=== PATIENT | female | born 1990 | race Caucasian/White ===

== ENCOUNTER 2016-07-30 22:21 | Emergency (ER) | payer OTHER, BC ==
[~2016-07-30] VITALS: Ht 172.7 cm; Wt 113.5 kg
[~2016-07-30 22:21] MED LIST: ALBUAER2 INH; ATR25 PO; ETONMIS VAGRING; MTR800 PO
[2016-07-30 22:23] VITALS: TEMP 36.9; Ht 172.7 cm; Wt 113.5 kg
[2016-07-30] MEDS ORDERED: ACETAMINOPHEN 500 MG TAB PO STA (22:39)
--- NOTE | 2016-07-30 22:56 | DIAGNOSTIC IMAGING REPORT ---
LEFT ANKLE MIN 3 VIEWS ROUTINE CLINICAL HISTORY: ankle pain TRAUMA COMPARISON: None. DISCUSSION: No fractures or dislocations are visualized. There is a plantar calcaneal spur. There is lateral soft tissue swelling. IMPRESSION: Soft tissue swelling. No fractures identified. Electronically signed by: Hector Astorga M.D. 07/30/2016 10:54 PM Dictated Date/Time: 07/30/2016 10:54 PM
[2016-07-30] MEDS ORDERED: HYDR25CA PO (22:58)
[2016-07-30] MEDS ORDERED: CLX20 PO (22:58)
[2016-07-30 23:18] VITALS: BP 136/91; PULSE 90; O2SAT 99
--- NOTE | 2016-07-31 04:19 | EMERGENCY ROOM VISIT NOTE ---
ED Visit Note First contact with patient: 22:30 CHIEF COMPLAINT: Ankle pain HISTORY OF PRESENT ILLNESS: This 25-year-old patient presents to the emergency department after sustaining an injury to the left ankle and foot with a twisting, inversion motion stepping out the truck wrong. The patient complains of pain along the outside of the ankle. The patient denies pain of the foot. The patient rates the pain as throbbing and 5/10. The patient is barely able to bear weight on the foot. Constant pain, worse with movement, weight bearing , and the dependent position. No knee pain, the patient is able to move their toes. No numbness or weakness of the foot, no laceration. The patient has not had a previous fracture to this ankle. The patient has taken Motrin for the pain. The patient denies any other injury. REVIEW OF SYSTEMS: A 6 system review of systems was completed with positives and pertinent negatives listed in the HPI. ALLERGIES: Sulfa, reviewed MEDICATIONS: Reviewed PMH: Asthma SOCIAL HISTORY: No drug use PHYSICAL EXAM: Vital Signs: Reviewed Nurse's notes, vital signs stable. GENERAL : Pleasant female, no acute distress, but appears in pain, well-developed, well- nourished. MENTAL STATUS: Alert, oriented to person place and time, and cooperative. MUSCULOSKELETAL: The left ankle is swollen and tender over the lateral malleolus, but the skin is intact and there is no ligamentous instability. There is no fifth metatarsal tenderness. There is no tenderness over the rest of the foot. There is no calf or tibia/fibular tenderness. There is no visual deformity. The foot and toes are warm and well-perfused. Dorsalis pedis pulse 2+. Sensation to pain and light touch is intact. Capillary refill less than 2 seconds. EMERGENCY DEPARTMENT COURSE: I examined the patient. Ice pack was applied and patient was given Tylenol. X-rays of the left ankle were reviewed by myself and shows no fracture per my interpretation. AirGel splint was applied to the ankle under my direction and the position was satisfactory. Neurovascular status was rechecked and intact. The patient was instructed on the use of crutches. The patient was discharged home in good condition. Patient was advised to follow-up orthopedics in a week if symptoms persist or here in the ER sooner for severe pain, numbness, tingling, worsening signs or symptoms or as needed. Differential diagnoses include sprain, strain, fracture, dislocation and other etiologies were considered. DIAGNOSIS: Left ankle sprain DISCHARGE INSTRUCTIONS: As below Problem List Medical Problems: (1) Asthma, Unspecified Status: Chronic Current/Historical Medications Scheduled Albuterol (Ventolin), 2 PUFFS INH QID PRN Citalopram (Citalopram Hydrobromide), 30 MG PO QAM Etonogestrel/Ethinyl Estradiol (Nuvaring), 1 EA VAGRING MONTHLY Ibuprofen (Ibuprofen), 800 MG PO UD Scheduled PRN Hydroxyzine Pamoate (Vistaril), 25 MG PO TID PRN for Anxiety/Agitation Allergies Coded Allergies: Methylprednisolone (Verified Allergy, Unknown, rash, 07/30/16) Sulfa Antibiotics (Verified Adverse Reaction, Unknown, leg cramps, 07/30/16 ) Vital Signs Date Time Temp Pulse Resp B/P Pulse Ox O2 Delivery O2 Flow Rate FiO2 07/30/16 23:18 90 18 136/91 99 Room Air 07/30/16 22:23 36.9 91 20 163/102 96 Room Air Medications Administered Medications (Trade) Dose Ordered Sig/Traci Route Start Time Stop Time Status Last Admin Dose Admin Acetaminophen (Tylenol Tab) 1,000 mg NOW STAT PO 07/30/16 22:39 07/30/16 22:40 DC 07/30/16 23:23 1,000 MG Departure Information Impression Primary Impression: Left ankle sprain Dispostion Home / Self-Care Condition GOOD Referrals Ayo Mckee M.D. Forms HOME CARE DOCUMENTATION FORM, Work Instructions, Return To Work: 1 day IMPORTANT VISIT INFORMATION Patient Instructions Sprain Ankle, My [facility] Additional Instructions Ibuprofen(Motrin, Advil) may be used for fever or pain. Use 600mg every six hours as needed. Take with food. Avoid using more than 2400mg in a 24 hour period. Do not use 2400mg per day for more than three consecutive days without physician direction. Prolonged inappropriate use can lead to stomach upset or ulcers. This medication can be taken if you need to drive, work, or perform activities which may be dangerous when taking narcotic pain medication. (AND/OR) Acetaminophen(Tylenol) may be used for fever or pain. Use 1000mg every six hours as needed. Avoid using more than 3000mg in a 24 hour period. This medication can be taken if you need to drive, work, or perform activities which may be dangerous when taking narcotic pain medication. Ice compresses for 20 minutes at a time four times daily for 2-3 days. Use the crutches as instructed. Rest and elevate your injury. Wear ankle gel splint until pain subsides. Do not have it so tight that you cannot feel your foot. Continue current medications. Return to the ER immediately for any numbness, tingling, severe pain, extreme swelling in the extremity or as needed. Call Orthopedics in 3-5 days in symptoms persist to arrange follow up for your injury. Work Instructions Return To Work: 1 day
== END 2016-07-30 23:40 | disposition home or self-care (01) ==
LOC: C.EDB 22:21
DX: S93.402A Sprain of unspecified ligament of left ankle, initial encounter (principal); X58.XXXA Exposure to other specified factors, initial encounter; J45.909 Unspecified asthma, uncomplicated; Z79.899 Other long term (current) drug therapy; Z88.2 Allergy status to sulfonamides; Z88.8 Allergy status to other drugs, medicaments and biological substances

== ENCOUNTER → 2016-09-09 | Outpatient (CLI) | payer OTHER, BC ==
[~2016-09-09] MED LIST changes: -ATR25 PO; +CLX20 PO; +HYDR-5688 PO; +HYDR25CA PO; +LORA-741 PO; +VNTHFA/IN INH
== END | disposition home or self-care (01) ==
LOC: C.LABSPEC 17:36
PROVIDERS: ATTEND Internal Medicine
DX: J02.9 Acute pharyngitis, unspecified (principal)

== ENCOUNTER 2017-01-31 07:02 | Emergency (ER) | payer OTHER, BC ==
[~2017-01-31] VITALS: Ht 170.2 cm; Wt 118.0 kg
[~2017-01-31 07:02] MED LIST changes: -HYDR-5688 PO; -LORA-741 PO; -VNTHFA/IN INH
[2017-01-31 07:04] VITALS: TEMP 36.7; Ht 170.2 cm; Wt 118.0 kg
--- NOTE | 2017-01-31 07:38 | DIAGNOSTIC IMAGING REPORT ---
RIGHT HIP UNILATERAL 2 VIEWS CLINICAL HISTORY: Right hip pain, no trauma Right pain COMPARISON: None. DISCUSSION: The bones and joint spaces appear intact. There is no evidence of fracture, dislocation or bony disease. There is no evidence for soft tissue swelling. IMPRESSION: Negative study. The above report was generated using voice recognition software. It may contain grammatical, syntax or spelling errors. Electronically signed by: George Richardson M.D. 01/31/2017 7:36 AM Dictated Date/Time: 01/31/2017 7:36 AM
[2017-01-31] MEDS ORDERED: VNTHFA/IN INH (08:04)
[2017-01-31] MEDS ORDERED: LORA-741 PO (08:04)
[2017-01-31] MEDS ORDERED: HYDROCODONE/ACETAMOPHEN 5/325MG TAB PO STA (08:39)
[2017-01-31] MEDS ORDERED: NAPROXEN 250 MG TAB PO STA (08:39)
[2017-01-31] MEDS ORDERED: HYDR-5688 PO (08:57)
[2017-01-31 09:10] VITALS: BP 151/99; PULSE 82; O2SAT 100
--- NOTE | 2017-01-31 12:49 | EMERGENCY ROOM VISIT NOTE ---
History Report prepared by Vashti: Rosalina Hyatt Under the Supervision of: Dr. Remy Ramírez M.D. First contact with patient: 07:07 Chief Complaint: HIP PAIN Stated Complaint: HIP PAIN History of Present Illness The patient is a 26 year old female who presents to the Emergency Room with complaints of worsening posterior right hip pain that started 4 days ago. The pain occasionally wraps around into her right anterior hip but otherwise does not radiate. She rates her discomfort as a 6-7/10 in severity. The patient describes the pain as a sharp and achy pain. The pain is worse when standing and occasionally when lying down or sitting upright. The patient states that she has been experiencing intermittent right hip pain for about 10 years now. She experiences the pain once every 1-1.5 months and nothing specific seems to cause the pain to occur. The patient states that her pain seemed to start 10 years ago after she fell in her driveway. She states that she landed on her tailbone when she fell. She has been on Flexeril for the pain for years and she is typically able to relieve her hip pain with the Flexeril and ibuprofen. However, neither offered her any relief of her current pain. The patient also states that her pain typically subsides after 1 day. Pt denies LOC, headache, fevers, chills, diaphoresis, visual changes, sore throat, cold symptoms, neck pain, chest pain, breathing difficulties, nausea, vomiting, abdominal pain, back pain, melena, hematochezia, urinary symptoms, numbness, weakness, lymphadenopathy, rash, or other complaints. The patient states that she lifts, twists, and bends when she is at work but she denies any recent abnormal strenuous activity. She also denies doing any recent strenuous activity that caused her pain to worsen immediately. The patient has been evaluated at a walk- in clinic for her pain, but they did not do any imaging of her hip. The patient adds that she has a suspected bug bite on her right forearm that she was recently on amoxicillin for. The amoxicillin seemed to improve her bite. Source of History: patient Onset: 4 days ago Position: other (right posterior hip) Symptom Intensity: 6-7/10 Quality: ache, sharp Timing: worsening Modifying Factors (Worsening): other (standing, lying, sitting upright) Modifying Factors (Relieving): other (None) Note: occasional right anterior hip pain Review of Systems See HPI for pertinent positives and negatives. A total of ten systems were reviewed and were otherwise negative. Past Medical & Surgical Medical Problems: (1) Asthma, Unspecified Surgical Problems: (1) S/P wrist surgery Family History Cancer Diabetes mellitus FH: heart disease FHx: lung disease Hypertension Kidney disease Social History Smoking Status: Never Smoker Alcohol Use: occasionally Marital Status: single Housing Status: lives with family Occupation Status: employed Current/Historical Medications Scheduled Citalopram (Citalopram Hydrobromide), 30 MG PO QAM Etonogestrel/Ethinyl Estradiol (Nuvaring), 1 EA VAGRING MONTHLY Ibuprofen (Ibuprofen), 800 MG PO UD Scheduled PRN Albuterol Hfa (Ventolin Hfa), 2-4 PUFFS INH Q6H PRN for Shortness of Breath Hydrocodone/Acetaminophen 5MG/325MG ([place] 5MG/325MG), 1-2 TABS PO Q6H PRN for Pain Hydroxyzine Pamoate (Vistaril), 25 MG PO TID PRN for Anxiety/Agitation Lorazepam (Ativan), 0.5 MG PO TID PRN for Anxiety Allergies Coded Allergies: Methylprednisolone (Verified Allergy, Unknown, rash, 01/31/17) Sulfa Antibiotics (Verified Adverse Reaction, Unknown, leg cramps, 01/31/17 ) Physical Exam Vital Signs Date Time Temp Pulse Resp B/P (MAP) Pulse Ox O2 Delivery O2 Flow Rate FiO2 01/31/17 09:10 82 18 151/99 100 01/31/17 07:04 36.7 107 20 157/97 99 Physical Exam GENERAL: Awake, alert, well-appearing, in no distress HENT: Normocephalic, atraumatic. Oropharynx unremarkable. EYES: Normal conjunctiva. Sclera non-icteric. NECK: Supple. No nuchal rigidity. FROM. No JVD. RESPIRATORY: Clear to auscultation. CARDIAC: Regular rate, normal rhythm. Extremities warm and well perfused. Pulses equal. ABDOMEN: Soft, non-distended. No tenderness to palpation. No rebound or guarding. No masses. RECTAL: Deferred. MUSCULOSKELETAL: Chest examination reveals no tenderness. The back is symmetrical on inspection without obvious abnormality. There is no CVA tenderness to palpation. No joint edema. LOWER EXTREMITIES: Tenderness over right posterior gluteus. Range of motion well preserved. No tenderness over greater trochanter. Remainder of right lower leg is unremarkable. Calves are equal size bilaterally and non-tender. No edema. No discoloration. The patient can bear weight without difficulty. NEURO: Normal sensorium. No sensory or motor deficits noted. SKIN: No rash or jaundice noted. Medical Decision & Procedures ER Provider Diagnostic Interpretation: Radiology results as stated below per my review and radiologist interpretation: RIGHT HIP UNILATERAL 2 VIEWS DISCUSSION: The bones and joint spaces appear intact. There is no evidence of fracture, dislocation or bony disease. There is no evidence for soft tissue swelling. IMPRESSION: Negative study. The above report was generated using voice recognition software. It may contain grammatical, syntax or spelling errors. Electronically signed by: George Richardson M.D. 01/31/2017 7:36 AM Dictated Date/Time: 01/31/2017 7:36 AM Medications Administered Medications (Trade) Dose Ordered Sig/Traci Route Start Time Stop Time Status Last Admin Dose Admin Naproxen (Naprosyn Tab) 500 mg NOW STAT PO 01/31/17 08:39 01/31/17 08:41 DC 01/31/17 08:47 500 MG Acetaminophen/ Hydrocodone Bitart ([place] 5/325 Tab) 1 tab NOW STAT PO 01/31/17 08:39 01/31/17 08:41 DC 01/31/17 08:48 1 TAB ED Course 0718: The patient was evaluated in room B10. A complete history and physical exam was performed. 0827: I reevaluated the patient. She is doing well. Discussed results and discharge instructions: she verbalized understanding and agreement. The patient is ready for discharge. 0839: Ordered Hydrocodone Bitart/Acetaminophen 1 tab PO, Naproxen 500 mg PO Medical Decision Medication Reconciliation: I attest that I have personally reviewed the patient' s current medication list Blood pressure screening: Patient was found to have an elevated blood pressure and was referred to their primary doctor for recheck and further treatment. Prior records reviewed and summarized above. Triage Nursing notes reviewed and agree them. The patient's history was concerning for posterior hip pain. Differential diagnosis: Etiologies such as arthritis, bursitis, piriformis syndrome, sacroiliitis, fracture, dislocation, soft tissue injury, infection, as well as others were entertained. Physical examination: As above. No signs of infection. Neurologic issues noted. ER treatment provided: Oral Naprosyn 1 [place] given because the patient drove herself to the emergency department. Diagnostics interpreted by me: Imaging studies: Xrays as above. The exact etiology is not obvious at this time. The patient may have a muscular issue such as a piriformis problem. She had great range of motion of the hip. She had no signs of bursitis. There is been an ongoing issue with this. There is no indication for blood work at this time. I discussed referral to orthopedics. The patient was in agreement. She was given information for [facility] She has seen them in the past. By the evaluation outlined above emergent etiologies such as fracture, dislocation, neurovascular compromise, compartment syndrome, infections, as well as others were deemed relatively unlikely. The patient and mother were informed about the findings as listed above. All questions were answered and they were pleased with the treatment. Return instructions were outlined and the patient was discharged in stable condition. Prescription management: [place] Naprosyn Referral: The patient was referred to [facility] for follow-up care. [place] Drug Monitoring Program Search Results: patient reviewed within database, no issues identified Impression Primary Impression: Right hip pain Scribe Attestation The scribe's documentation has been prepared under my direction and personally reviewed by me in its entirety. I confirm that the note above accurately reflects all work, treatment, procedures, and medical decision making performed by me. Departure Information Dispostion Home / Self-Care Prescriptions Hydrocodone/Acetaminophen 5MG/325MG ([place] 5MG/325MG) Tab 1-2 TABS PO Q6H Y for Pain, #10 TAB Prov: Remy Ramírez MD 01/31/17 Referrals Edwardo Domínguez M.D. (PCP) Forms HOME CARE DOCUMENTATION FORM, IMPORTANT VISIT INFORMATION, WORK / SCHOOL INSTRUCTIONS Patient Instructions My [facility] Additional Instructions ORTHOPEDIC INSTRUCTIONS: Hydrocodone/acetaminophen 5/325mg: Take 1-2 pills every 6 hours as needed for pain. Avoid additional Acetaminophen/Tylenol, alcohol, operating machinery or dangerous equipment, working on ladders or roofs, DRIVING, or situations where being under the influence may be dangerous. It is recommended to use a stool softener such as Colace, 100mg twice daily while taking this medication to avoid constipation. Do not take this in conjunction with your Ativan. Naprosyn 500 mg may be used for pain. Use 1 pill twice a day as needed. Take with food. Prolonged inappropriate use can lead to stomach upset or ulcers. Ice compresses for 20 minutes at a time four times daily for 2-3 days. Rest your injury. Return to the ER immediately for any numbness, tingling, severe pain, extreme swelling in the extremity or as needed. Call [facility], [phone], to arrange follow up for your pain. Your blood pressure was noted to be mildly elevated please follow-up with your primary care physician in 2 to 3 days for a recheck of your current condition.
== END 2017-01-31 09:12 | disposition home or self-care (01) ==
LOC: C.EDB 07:03
DX: M25.551 Pain in right hip (principal); J45.909 Unspecified asthma, uncomplicated; Z80.9 Family history of malignant neoplasm, unspecified; Z83.3 Family history of diabetes mellitus; Z82.49 Family history of ischemic heart disease and other diseases of the circulatory system; Z84.1 Family history of disorders of kidney and ureter; Z79.899 Other long term (current) drug therapy

== ENCOUNTER → 2017-04-23 | Outpatient (CLI) | payer OTHER, BC ==
[~2017-04-23] MED LIST changes: -ALBUAER2 INH; +HYDR-5688 PO; +LORA-741 PO; +VNTHFA/IN INH
== END | disposition home or self-care (01) ==
LOC: C.LABSPEC 12:21
PROVIDERS: ATTEND Physician Assistant Medical
DX: R19.7 Diarrhea, unspecified (principal)

== ENCOUNTER → 2017-10-29 | Outpatient (CLI) | payer OTHER ==
[~2017-10-29] MED LIST changes: -HYDR-5688 PO
[2017-10-29 12:14] LABS: HEMATOCRIT 40.7 % (37-47); HEMOGLOBIN 13.7 g/dL (12.0-16.0); MEAN CELL VOLUME 87.3 fL (80-100); MEAN CORPUSCULAR HEMOGLOBIN 29.4 pg (25-34); MEAN CORPUSCULAR HGB CONC 33.7 g/dl (32-36); MEAN PLATELET VOLUME 9.2 fL (7.4-10.4); PLATELET COUNT 289 K/uL (130-400); RED CELL DISTRIBUTION WIDTH CV 14.4 % (11.5-14.5); RED CELL DISTRIBUTION WIDTH SD 45.7 fL (36.4-46.3); WHITE BLOOD COUNT 7.59 K/uL (4.8-10.8)
[2017-10-29 12:26] LABS: ALBUMIN 3.5 gm/dl (3.4-5.0); ALT/SGPT 35 U/L (12-78); AST/SGOT 17 U/L (15-37); BLOOD UREA NITROGEN 9 mg/dl (7-18); CALCIUM 9.7 mg/dl (8.5-10.1); CARBON DIOXIDE 25 mmol/L (21-32); CREATININE 0.63 mg/dl (0.60-1.20); GLUCOSE 92 mg/dl (70-99); POTASSIUM 4.2 mmol/L (3.5-5.1); SODIUM 139 mmol/L (136-145)
[2017-10-29 12:36] LABS: ALKALINE PHOSPHATASE 55 U/L (45-117)
== END | disposition home or self-care (01) ==
LOC: C.LABBFT 09:08
PROVIDERS: ATTEND Physician Assistant Medical
DX: R42 Dizziness and giddiness (principal); G43.909 Migraine, unspecified, not intractable, without status migrainosus

== ENCOUNTER 2022-09-16 10:05 | Inpatient (IN) ==
[2022-09-16] MEDS: LACTATED RINGER'S 1,000 ML IV PRN ×2 (10:50→13:52)
[2022-09-16] MEDS ORDERED: OXYTOCIN 30 UNITS/500 ML BAG IV PRN ×3 (11:32→19:23)
[2022-09-16] MEDS ORDERED: LIDOCAINE 1% LOCAL 20 ML VIAL INFIL PRN (11:32)
[2022-09-16 12:14] LABS: Hematocrit (blood only) 29.8 % (37.0-47.0); Hemoglobin 9.6 g/dl (12.0-16.0); Mean Corpuscular Hemoglobin 25.5 pg (25.0-34.0); Mean Corpuscular Hgb Conc 32.2 g/dL (32.0-36.0); Mean Platelet Volume 9.7 fL (9.4-12.4); Platelet Count 266 K/uL (130-400); Red Blood Count 3.77 M/uL (4.20-5.40); White Blood Count 9.45 K/ul (4.8-10.8)
--- NOTE | 2022-09-16 13:04 | History & Physical Report ---
Date of Service September 16, 2022 Assessment & Plan (1) IUGR (intrauterine growth restriction) affecting care of mother: Plan: IUP at 38 weeks with IUGR here for IOL cervical balloon successfully placed Pitocin induction initiated epidural analgesia when requested anticipate vaginal Admission and Anticipated Discharge Date Admission Date: September 16, 2022 History of Present Illness Primary Care Provider: Edwardo Domínguez MD Patient is a 31 yo female EDC 09/30/22 who presents at 38 weeks for IOL because of IUGR affecting this . testing has been reassuring. GBS negative. First was complicated by development of gestational HTN leading to IOL 38+ weeks. Allergies Allergy/AdvReac Type Severity Reaction Status Date / Time sulfamethoxazole Allergy Intermediate Hives Verified 09/15/22 14:17 [From Bactrim] trimethoprim [From Bactrim] Allergy Intermediate Hives Verified 09/15/22 14:17 methylprednisolone Allergy Unknown rash Verified 09/15/22 14:17 Sulfa (Sulfonamide AdvReac Unknown leg cramps Verified 09/15/22 14:17 Antibiotics) NSAIDS (Non-Steroidal AdvReac Unknown Verified 09/15/22 14:17 Anti-Inflamma Home Medications Medication Instructions Recorded Confirmed Type prenat.vits,betina,bov-rplv-ringw 1 tab PO QAM 01/12/20 09/15/22 History famotidine 20 mg tablet 20 mg PO QAM 11/14/21 09/15/22 History acetone (urine) test (Ketone Urine #50 ea 03/20/22 09/15/22 Rx Test strips) blood sugar diagnostic (OneTouch #150 ea 03/20/22 09/15/22 Rx Verio test strips) lancets 33 gauge (OneTouch Delica #150 ea 03/20/22 09/15/22 Rx Plus Lancet) citalopram 10 mg tablet (Celexa) 10 mg PO DAILY #30 tabs 04/13/22 09/15/22 Rx aspirin 81 mg tablet,delayed 81 mg PO DAILY 06/08/22 09/15/22 History release (Adult Low Dose Aspirin) blood-glucose sensor (FreeStyle #2 ea 06/22/22 09/15/22 Rx Dipesh 3 Sensor device) ondansetron 4 mg disintegrating 4 mg PO Q6H #30 tabs 09/05/22 09/15/22 Rx tablet cyanocobalamin (vitamin B-12) 1,000 mcg IM .COMPLEX #3 mL 09/08/22 09/15/22 Rx 1,000 mcg/mL injection solution Patient History Medical History (Updated 08/03/22 @ 15:32 by Zhang Cedillo MD, FACOG) Anxiety Depression Exercise-induced asthma History of COVID-19 05/2020- [place], CONGESTION, GI ISSUES, FATIGUE, LOSS OF TASTE AND SMELL; NO HOSPITALIZATION Iron deficiency anemia hx Migraines Mild dysplasia of cervix (TITA I) Post depression Varicella vaccination Surgical History History of colposcopy History of esophagogastroduodenoscopy (EGD) History of surgery on wrist age 14 Hx laparoscopic cholecystectomy (12/25/21) Laparoscopic Cholecystectomy(Not Applicable) - [facility], S/P gastric surgery 2017 Family History Father Hypertension Gout Pure hypercholesterolemia Mother Alcohol abuse Unknown Breast cancer Multiple polyps of sigmoid colon Grandfather (Paternal) Diabetes Hypertension Cancer Grandmother (Maternal) Osteoporosis Grandmother (Paternal) Heart disease Aortic stenosis Hypertension Social History (Updated 02/09/22 @ 11:08 by Ebony Ruiz) Smoking Status: Never smoker Second Hand Exposure: No; Hx Alcohol Use: No Hx Substance Use: No Preferred Language: Latvian Communication Ability: Effective Visual Impairment: No Limitations Preschool Assistant Principal Required: No Beliefs That Will Affect Care: None marital status: marital status details: Jak Hassan (27) [phone] Current Living Situation: Spouse and Family Current Living Situation Comment: lives with spouse, child, and dog current occupational status: employed current occupation: Natural Resource Technician [employer] How many Children do You have: 1 Feels Safe at Home: Yes Safety Concerns: Feels Safe At This Time during the past year weight has: remained stable Assistive Devices: Contacts and Glasses Review of Systems All systems reviewed & are unremarkable except as noted in HPI & below Physical Exam Constitutional: WD/WN, vitals as above Psychiatric: A+Ox3, euthymic affect Genitourinary: OB Exam Abdomen: + vertex, + estimated weight (5-6 pounds) and + irregular contractions Manual OB Exam: + cervical dilation 1 cm, + cervical effacement 50% and + station -2 OB Exam Monitor Tracing: + external FHT monitor used, + external uterine monitor used, + category I and + normal FHT variability speculum was placed vaginally and cervix visualized. Powell catheter was inserted into the os and the balloon filled with 40 cc of sterile water. the catheter was then placed on traction and secured to her left thigh. tolerated the procedure well. Results & Data ([facility]) Vital Signs (Past 12 Hours) Vital Signs Temp Pulse Resp BP 09/16/22 11:16 98.4 F 73 20 129/88 09/16/22 11:08 73 129/88 09/16/22 10:19 98.4 F 66 20 140/89 Code Status & VTE Plan VTE Prophylaxis Plan VTE Prophylaxis will be ordered: No Coding Level of Care Code None Diagnoses IUGR (intrauterine growth restriction) affecting care of mother O36.5990 CPT Codes Misx Procedure Codes - 47427 Placement of cervical dilator: 29609 Placement of cervical dilator ([id number])
[2022-09-16] MEDS ORDERED: fentaNYL citrate 100 MCG/2 ML VIAL ONE (17:40)
[2022-09-16] MEDS ORDERED: ePHEDrine sulfate 50 MG/ML AMP ONE (17:40)
[2022-09-16] MEDS ORDERED: BUPIVACAINE 0.25% 30 ML VIAL ONE (17:40)
[2022-09-16] MEDS ORDERED: LIDOCAINE 2%/EPINEPHRINE 1:200,000 20 ML SDV ONE (17:40)
[2022-09-16] MEDS ORDERED: SODIUM CHLORIDE 0.9% INJ 10 ML VIAL ONE (17:40)
[2022-09-16] MEDS ORDERED: fentaNYL 2MCG/ML ROPIVACAINE 1.25MG/ML 100 ML BAG EPI ONE (17:41)
--- NOTE | 2022-09-16 18:15 | Anesthesiology Consultation ---
Date of Service September 16, 2022 Assessment & Plan Chart Review Chart Review: Acceptable Risk for Labor Epidural Consults Requested none History Height/Weight Height: 5 ft 8.75 in Weight: 95.44 kg Allergies Allergy/AdvReac Type Severity Reaction Status Date / Time sulfamethoxazole Allergy Intermediate Hives Verified 09/15/22 14:17 [From Bactrim] trimethoprim [From Bactrim] Allergy Intermediate Hives Verified 09/15/22 14:17 methylprednisolone Allergy Unknown rash Verified 09/15/22 14:17 Sulfa (Sulfonamide AdvReac Unknown leg cramps Verified 09/15/22 14:17 Antibiotics) NSAIDS (Non-Steroidal AdvReac Unknown Verified 09/15/22 14:17 Anti-Inflamma Medications Home Medications Medication Instructions Recorded Confirmed Last Taken prenat.vits,betina,[id number] 1 tab PO QAM 01/12/20 09/15/22 09/10/22 21:00 famotidine 20 mg tablet 20 mg PO QAM 11/14/21 09/15/22 09/10/22 21:00 acetone (urine) test (Ketone Urine #50 ea 03/20/22 09/15/22 Unknown Test strips) blood sugar diagnostic (OneTouch #150 ea 03/20/22 09/15/22 Unknown Verio test strips) lancets 33 gauge (OneTouch Delica #150 ea 03/20/22 09/15/22 Unknown Plus Lancet) citalopram 10 mg tablet (Celexa) 10 mg PO DAILY #30 tabs 04/13/22 09/15/22 09/10/22 21:00 aspirin 81 mg tablet,delayed 81 mg PO DAILY 06/08/22 09/15/22 09/10/22 21:00 release (Adult Low Dose Aspirin) blood-glucose sensor (FreeStyle #2 ea 06/22/22 09/15/22 Unknown Dipesh 3 Sensor device) ondansetron 4 mg disintegrating 4 mg PO Q6H #30 tabs 09/05/22 09/15/22 09/09/22 21:00 tablet cyanocobalamin (vitamin B-12) 1,000 mcg IM .COMPLEX #3 mL 09/08/22 09/15/22 08/13/22 12:00 1,000 mcg/mL injection solution Active Medications Generic Name Dose Route Start Last Admin Trade Name Freq PRN Reason Stop Dose Admin Lactated Ringer's 1,000 mls @ 125 mls/hr 09/16/22 11:32 09/16/22 15:59 Lr IV 09/18/22 11:31 Infused .Q8H PRN Infusion L&D Protocol Protocol Oxytocin 30 units in 500 mls @ 17 mls/hr 09/16/22 11:35 09/16/22 16:35 Pitocin IV 09/18/22 11:34 1.02 units/hr .Q24H PRN 17 mls/hr Labor Induction/Augmentation Titration Protocol 1.02 UNITS/HR Past Medical History Medical History (Updated 08/03/22 @ 15:32 by Zhang Cedillo MD, FACOG) Anxiety Depression Exercise-induced asthma History of COVID-19 05/2020- [place], CONGESTION, GI ISSUES, FATIGUE, LOSS OF TASTE AND SMELL; NO HOSPITALIZATION Iron deficiency anemia hx Migraines Mild dysplasia of cervix (TITA I) Post depression Varicella vaccination Past Family History Family History Father Hypertension Gout Pure hypercholesterolemia Mother Alcohol abuse Unknown Breast cancer Multiple polyps of sigmoid colon Grandfather (Paternal) Diabetes Hypertension Cancer Grandmother (Maternal) Osteoporosis Grandmother (Paternal) Heart disease Aortic stenosis Hypertension Past Surgical History Surgical History History of colposcopy History of esophagogastroduodenoscopy (EGD) History of surgery on wrist age 14 Hx laparoscopic cholecystectomy (12/25/21) Laparoscopic Cholecystectomy(Not Applicable) - Savage Bradley, DO S/P gastric surgery 2018 Social History Smoking Status: Never smoker Hx Alcohol Use: No Alcohol type: wine Hx Substance Use: No substance use type: does not use Physical Exam Vital Signs Last Vital Signs Temp 37.0 C 09/16/22 18:03 Pulse 81 09/16/22 18:13 Resp 19 09/16/22 18:03 BP 134/85 09/16/22 18:13 Pulse Ox 98 09/16/22 18:09 Testing Laboratory Results 09/16/22 11:40 09/16/22 10:22 POC Glucose 79
[2022-09-16] MEDS ORDERED: NALBUPHINE HCL INJ 10 MG/ML AMP IV PRN (18:17)
[2022-09-16] MEDS ORDERED: ePHEDrine sulfate 50 MG/ML AMP IV PRN (18:17)
[2022-09-16] MEDS ORDERED: NALOXONE HCL 0.4 MG/1 ML VIAL/CARP IV PRN (18:17)
[2022-09-16] MEDS ORDERED: fentaNYL 2MCG/ML ROPIVACAINE 1.25MG/ML 100 ML BAG EPI PRN (18:17)
[2022-09-16] MEDS ORDERED: diphenhydrAMINE 50 MG/ML VIAL IV PRN (18:17)
[2022-09-16] MEDS ORDERED: NALOXONE HCL 1 MG in SODIUM CHLORIDE 0.9% 1000ML 1,000 ML IV PRN (18:17)
[2022-09-16] MEDS ORDERED: HYDROCORTISONE ACETATE 25 MG SUPP PR PRN (19:23)
[2022-09-16] MEDS ORDERED: BENZOCAINE 20% AER SPR 82.5 GM CAN EXT PRN (19:23)
[2022-09-16] MEDS ORDERED: oxyCODONE/ACETAMINOPHEN 5mg/325mg TAB PO PRN (19:23)
[2022-09-16] MEDS ORDERED: bisacodyL 10 MG SUPP PR PRN (19:23)
[2022-09-16] MEDS ORDERED: ACETAMINOPHEN 325 MG TAB PO PRN (19:23)
[2022-09-16] MEDS ORDERED: IBUPROFEN 600 MG TAB PO PRN (19:23)
[2022-09-16] MEDS ORDERED: DIPHTHERIA/TETANUS/PERTUSSIS 0.5mL SYR/VIAL (Age 7+yrs) IM ONE (19:23)
--- NOTE | 2022-09-16 20:23 | Anesthesia Procedure Note ---
Date of Service September 16, 2022 Anesthesia Post Epidural Note Vital Signs Vital Signs: Temp Pulse Resp BP Pulse Ox 37.0 C 75 18 150/86 H 91 09/16/22 18:03 09/16/22 20:19 09/16/22 20:05 09/16/22 20:19 09/16/22 19:45 Notes Mental Status: alert / awake / arousable Nausea / Vomiting: adequately controlled Pain: adequately controlled Airway Patency, RR, SpO2: stable & adequate BP & HR: stable & adequate Hydration State: stable & adequate Neuraxial Anesthesia: was administered and sensory block is resolving Anesthetic Complications: no major complications apparent and Pt Satisfied with anesthetic care Epidural: Removed without complications and With tip intact
--- NOTE | 2022-09-16 20:39 | Delivery Summary ---
Vaginal Delivery Summary Date of Service September 16, 2022 Vaginal Delivery Summary and 1st Degree LAC Patient is a 31-year-old 2 para 1-0-0-1 female EDC 09/30/2022 who presents for induction of labor because of IUGR. testing was reassuring. She had a cervical balloon for ripening at the same time as Pitocin induction was begun. After the balloon was expelled, membranes were ruptured for clear fluid. She received effective epidural analgesia and moved quickly to full dilation with the urge to push. She pushed effectively through 1 contraction for delivery of a viable female over intact perineum. The infant was placed on the mother's abdomen for further attention and stimulation. She was not crying vigorously but had good color tone and respiratory effort. The cord was clamped and cut after 1 minute. After cord blood was obtained, the placenta was expressed intact with a three-vessel cord. bleeding was controlled with dilute Pitocin and fundal massage. A first-degree vaginal laceration was repaired with 3-0 chromic in the usual fashion. Mother and infant were in stable condition after delivery. Estimated blood loss 200 cc [facility] Vaginal Delivery Charge Delivery Type Details: and 1st Degree LAC
--- NOTE | 2022-09-17 06:17 | Obstetrical Progress Note ---
Date of Service <Lucia Eaton MD - Last Filed: 09/17/22 07:52> September 17, 2022 Assessment & Plan <Lucia Eaton MD - Last Filed: 09/17/22 07:52> (1) examination following vaginal delivery: 31 y/o female presented for IOL now PPD1 after vaginal delivery. GBS neg, Rh pos, RI. Satisfactory post progress. Tolerating PO. Encourage ambulation. c/b GDM - will need repeat GTT post <Huma Plascencia MD, FACOG - Last Filed: 09/17/22 08:03> (1) examination following vaginal delivery: Subjective <Lucia Eaton MD - Last Filed: 09/17/22 07:52> Ambulation: ambulating normally Voiding: no voiding problems Passing Gas:: Yes Diet Tolerance:: regular diet Lochia:: Small Feeding Type:: breast feeding Physical Exam <Lucia Eaton MD - Last Filed: 09/17/22 07:52> Gen: well appearing female in NAD HEENT: AT NC Resp: CTAB, No increased work of breathing CV: RRR, no m/r/g, no calf tenderness : uterus firm, non-tender at the level of the umbilicus Psych: appropriate mood and affect Neuro: alert and oriented Results & Data ([facility]) <Lucia Eaton MD - Last Filed: 09/17/22 07:52> Vital Signs (Past 12 Hours) Vital Signs Temp Pulse Pulse Resp BP BP Pulse Ox 09/17/22 00:00 36.8 C 71 18 125/82 100 09/16/22 22:00 36.7 C 76 18 126/83 99 09/16/22 21:20 93 H 20 128/81 09/16/22 20:05 73 18 131/65 09/16/22 19:50 73 18 131/65 09/16/22 20:20 75 18 09/16/22 19:35 75 18 09/16/22 19:20 80 18 100 09/16/22 21:19 93 H 09/16/22 21:19 128/81 09/16/22 21:04 77 09/16/22 21:04 128/72 09/16/22 20:49 76 09/16/22 20:49 138/75 09/16/22 20:34 73 09/16/22 20:34 135/81 09/16/22 20:19 75 09/16/22 20:19 150/86 H 09/16/22 20:04 73 09/16/22 20:04 131/65 09/16/22 19:49 75 09/16/22 19:49 151/85 H 09/16/22 19:44 100 09/16/22 19:45 91 09/16/22 19:44 92 H 09/16/22 19:45 87 09/16/22 19:39 100 09/16/22 19:39 72 09/16/22 19:34 100 09/16/22 19:34 72 09/16/22 19:34 138/86 09/16/22 19:29 99 09/16/22 19:29 75 09/16/22 19:24 100 09/16/22 19:24 80 09/16/22 19:19 100 09/16/22 19:19 90 09/16/22 19:19 82 09/16/22 19:19 139/82 09/16/22 19:18 93 09/16/22 19:18 83 09/16/22 19:14 100 09/16/22 19:14 79 09/16/22 19:14 79 09/16/22 19:14 133/78 09/16/22 19:09 84 L 09/16/22 19:09 98 H 09/16/22 19:09 92 09/16/22 19:09 102 H 09/16/22 19:04 99 09/16/22 19:04 89 09/16/22 19:05 101 H 09/16/22 19:05 143/85 H 09/16/22 18:59 100 09/16/22 18:59 87 09/16/22 18:55 75 09/16/22 18:55 149/84 H 09/16/22 18:54 100 09/16/22 18:54 80 09/16/22 18:49 100 09/16/22 18:49 80 09/16/22 18:44 100 09/16/22 18:44 77 09/16/22 18:44 137/81 09/16/22 18:39 100 09/16/22 18:39 82 09/16/22 18:34 99 09/16/22 18:34 87 09/16/22 18:34 139/85 09/16/22 18:29 99 09/16/22 18:29 82 09/16/22 18:24 100 09/16/22 18:24 87 09/16/22 18:24 132/76 09/16/22 18:19 100 09/16/22 18:19 87 O2 Del Method 09/17/22 00:00 Room Air 09/16/22 22:00 Room Air 09/16/22 21:20 09/16/22 20:05 09/16/22 19:50 09/16/22 20:20 09/16/22 19:35 09/16/22 19:20 09/16/22 21:19 09/16/22 21:19 09/16/22 21:04 09/16/22 21:04 09/16/22 20:49 09/16/22 20:49 09/16/22 20:34 09/16/22 20:34 09/16/22 20:19 09/16/22 20:19 09/16/22 20:04 09/16/22 20:04 09/16/22 19:49 09/16/22 19:49 09/16/22 19:44 09/16/22 19:45 09/16/22 19:44 09/16/22 19:45 09/16/22 19:39 09/16/22 19:39 09/16/22 19:34 09/16/22 19:34 09/16/22 19:34 09/16/22 19:29 09/16/22 19:29 09/16/22 19:24 09/16/22 19:24 09/16/22 19:19 09/16/22 19:19 09/16/22 19:19 09/16/22 19:19 09/16/22 19:18 09/16/22 19:18 09/16/22 19:14 09/16/22 19:14 09/16/22 19:14 09/16/22 19:14 09/16/22 19:09 09/16/22 19:09 09/16/22 19:09 09/16/22 19:09 09/16/22 19:04 09/16/22 19:04 09/16/22 19:05 09/16/22 19:05 09/16/22 18:59 09/16/22 18:59 09/16/22 18:55 09/16/22 18:55 09/16/22 18:54 09/16/22 18:54 09/16/22 18:49 09/16/22 18:49 09/16/22 18:44 09/16/22 18:44 09/16/22 18:44 09/16/22 18:39 09/16/22 18:39 09/16/22 18:34 09/16/22 18:34 09/16/22 18:34 09/16/22 18:29 09/16/22 18:29 09/16/22 18:24 09/16/22 18:24 09/16/22 18:24 09/16/22 18:19 09/16/22 18:19 Laboratory Results 09/16/22 11:40 <Huma Plascencia MD, FACOG - Last Filed: 09/17/22 08:03> Co-Signing Physician Notes Resident Physician Supervision Note: I interviewed and examined the patient. Discussed with Dr. Eaton and agree with findings and plan as documented in the note. Any exceptions or clarifications are listed here: [None] Documented By: Huma Plascencia MD, FACOG Resident Activity Tracking <Lucia Eaton MD - Last Filed: 09/17/22 07:52> Resident Involvement: Resident Care Provided Care Provided: OB Delivery
[2022-09-17 06:45] LABS: Hematocrit (blood only) 30.9 % (37.0-47.0); Hemoglobin 9.9 g/dl (12.0-16.0); Mean Corpuscular Hemoglobin 25.3 pg (25.0-34.0); Mean Platelet Volume 9.9 fL (9.4-12.4); Platelet Count 253 K/uL (130-400); RDW Coefficient of Variation 15.9 % (11.5-14.5); RDW Standard Deviation 43.1 fL (36.4-46.3); Red Blood Count 3.91 M/uL (4.20-5.40); White Blood Count 8.49 K/ul (4.8-10.8)
[2022-09-17] MEDS: DOCUSATE SODIUM 100 MG CAP PO SCH ×2 (08:16→21:04)
[2022-09-17] MEDS: PRENATAL VITAMIN 1 TAB PO SCH (08:16)
[2022-09-17] MEDS ORDERED: CITALOPRAM 20 MG TAB PO SCH (09:00)
[2022-09-17] MEDS: CITALOPRAM 20 MG TAB PO SCH (11:57)
[2022-09-17] MEDS ORDERED: bisacodyL 5 MG TABEC PO SCH (20:00)
--- NOTE | 2022-09-18 00:07 | Obstetrical Progress Note ---
Date of Service September 18, 2022 Assessment & Plan (1) examination following vaginal delivery: 31 y/o female presented for IOL now PPD2 after vaginal delivery. GBS neg, Rh pos, RI. Satisfactory post progress. Tolerating PO. Encourage ambulation. c/b GDM - will need repeat GTT post Subjective Ambulation: ambulating normally Voiding: no voiding problems Passing Gas:: Yes Diet Tolerance:: regular diet Lochia:: Small Feeding Type:: breast feeding Physical Exam Gen: well appearing female in NAD HEENT: AT NC Resp: No increased work of breathing CV: Clinically well perfused, no calf tenderness : uterus firm, non-tender at the level of the umbilicus Psych: appropriate mood and affect Neuro: alert and oriented Results & Data ([facility]) Vital Signs (Past 12 Hours) Vital Signs Temp Pulse Resp BP Pulse Ox O2 Del Method 09/17/22 23:52 36.6 C 81 18 116/81 97 Room Air 09/17/22 18:58 36.6 C 99 H 18 130/84 98 Room Air 09/17/22 15:20 36.7 C 90 20 137/80 98 Room Air Resident Activity Tracking Resident Involvement: Resident Care Provided Care Provided: OB Delivery
[2022-09-18 07:16] LABS: Hematocrit (blood only) 30.7 % (37.0-47.0); Hemoglobin 9.9 g/dl (12.0-16.0)
[2022-09-18] MEDS: DOCUSATE SODIUM 100 MG CAP PO SCH (08:56)
[2022-09-18] MEDS: PRENATAL VITAMIN 1 TAB PO SCH (08:56)
[2022-09-18] MEDS: CITALOPRAM 20 MG TAB PO SCH (08:57)
--- NOTE | 2022-09-21 09:04 | Coding Query ---
PRESENT ON ADMISSION QUERY To promote full compliance with coding requirements relating to pateint care, physician participation is requested in all cases of tobacco stemmer machine uncertainty. Please assist us with the question(s) below: Please place an X within the parenthesis (x). The following diagnosis listed in this patient's medical record require physician assistance to determine if they were present on admission (POA) or not. Please advise for each diagnosis whether it was present on admission, not present on admission, or if it was clinically undetermined. 1. GDM - (documentation begins on the 09/17 Progress Note) (x ) Present On Admission ( ) Not Present On Admission ( ) Clinically Undetermined Thank you Rosie Russo *Definition of the present on admission (POA)-Present on admission is defined as present at the time the order for inpatient admission occurs. Conditions that develop during an outpatient encounter prior to a written order for inpatient admission (including emergency department, observation, or outpatient surgery) are considered present on admission. MTDD
== END 2022-09-18 13:40 | disposition home or self-care (01) | DRG 807 ==
LOC: 4S1 10:05 → 4E2 21:44